=== PATIENT | female | born 1990 | race African-American/Black ===

== ENCOUNTER 2017-05-04 20:43 | Emergency (ER) | payer BC, SELFPAY ==
[2017-05-04] MEDS ORDERED: Lidocaine Viscous Sol 2% 15 ml UD Cup ONE (21:03)
[2017-05-04] MEDS ORDERED: Mag-Al Plus 1200 MG/1200 MG/120 MG/30 ML UDCUP ONE (21:03)
== END 2017-05-04 21:35 | disposition home or self-care (01) ==
LOC: NAV ERS 20:43
DX: K29.60 Other gastritis without bleeding (principal); G47.30 Sleep apnea, unspecified
CPT/HCPCS: 93005